=== PATIENT | female | born 1930 | race Caucasian/White ===

== ENCOUNTER 2016-11-11 20:27 | Inpatient (IN) | payer MEDICARE ==
[~2016-11-11] VITALS: Ht 160 cm; Wt 69.9 kg
--- NOTE | 2016-11-11 19:58 | NUR ---
Admitted this 86y/o female from [facility] to [facility] Unit with Admitting diagnosis of Debility, with history of HTN, Chronic Kidney Disease Stg. II, Type II Diabetes, Myopathy, Atrial Fibrillation, ETOH abuse, bilateral cataracts, and dementia. Patient arrived in stable condition. Ambulated with assistance by Caregiver, Migel. Patient is alert and oriented x 3. Able to make needs known. Denies any pain and discomfort at this time. No SOB noted. No acute distress. On Room air. Patient oriented to staff, room, bathroom, use of devices with verbalized understanding. Routine admission care rendered. Belongings listed done. Skin is intact. Patient reminded to use call light when help is needed. Verbalizes understanding. Bed alarm is on. Dr. Lopez made aware of admission and med recon. All needs attended to promptly. Call light is within reach. Will continue to monitor patient.
[2016-11-11 20:00] VITALS: BP 152/81
[2016-11-11] MEDS ORDERED: CHOL500062 PO (20:58)
[2016-11-11] MEDS ORDERED: OMEP20TA5 PO (20:58)
[2016-11-11] MEDS ORDERED: VITA-287 PO (20:58)
[2016-11-11] MEDS ORDERED: OMEG1CAP55 PO (20:58)
[2016-11-11] MEDS ORDERED: METF500T4 PO (20:58)
[2016-11-11] MEDS ORDERED: AMLO5TAB2 PO (20:58)
[2016-11-11] MEDS ORDERED: MULT-1160 PO (20:58)
[2016-11-11] MEDS ORDERED: DEXTROSE 50% 50 ML DISP.SYRIN IV PRN (23:45)
[2016-11-12] MEDS: PANTOPRAZOLE SODIUM 40 MG TABLET.DR PO SCH (06:29)
--- NOTE | 2016-11-12 06:30 | NUR ---
Patient is awake at this time. Slept comfortably through out the night. Assisted to the bathroom intermittently through out the night. Tolerated well. No c/o pain or discomfort. No acute distress. No SOB. 7am medication administered. BS 102. No coverage needed. No s/s of hypoglycemia. All needs attended to promptly. Call light within reach. Will continue to monitor.
[2016-11-12] MEDS: BLOOD SUGAR DIAGNOSTIC 1 EACH STRIP VI SCH ×4 (06:33→21:15)
[2016-11-12] MEDS ORDERED: PANTOPRAZOLE SODIUM 40 MG TABLET.DR PO ONE (06:34)
[2016-11-12 08:00] LABS: BASOPHILS % (AUTO) 0.5 % (0.0-2.0); EOSINOPHILS # (AUTO) 0.2 K/uL (0.0-0.7); EOSINOPHILS % (AUTO) 3.4 % (0.0-7.0); HEMATOCRIT 36.4 % (37-47); HEMOGLOBIN 12.2 G/DL (12.0-16.0); LYMPHOCYTES # (AUTO) 2.1 K/UL (0.8-4.8); LYMPHOCYTES % (AUTO) 42.5 % (20.5-51.5); MEAN CORPUSCULAR HEMOGLOBIN 29.4 UUG (27.0-31.0); MEAN CORPUSCULAR HGB CONC 34 g/dL (32.0-37.0); MEAN CORPUSCULAR VOLUME 87.7 FL (81.0-99.0); MONOCYTES # (AUTO) 0.4 K/UL (0.1-1.30); MONOCYTES % (AUTO) 8.7 % (0.0-11.0); NEUTROPHILS # (AUTO) 2.2 K/UL (1.8-8.9); NEUTROPHILS % (AUTO) 44.9 % (38.5-71.5); PLATELET COUNT (AUTO) 236 K/UL (150-450); RED BLOOD CELL COUNT(AUTO) 4.15 MIL/UL (4.2-5.4); WHITE BLOOD COUNT (AUTO) 4.9 K/UL (4.0-11.2)
[2016-11-12] MEDS: MULTIVIT, IRON, MIN NO. 8, FA TABLET PO SCH (08:07)
[2016-11-12] MEDS: METFORMIN HCL 500 MG TABLET PO SCH ×2 (08:07→17:55)
[2016-11-12] MEDS: AMLODIPINE 5 MG TABLET PO SCH (08:09)
[2016-11-12 08:31] LABS: ALANINE AMINOTRANSFERASE 18 U/L (14-59); ALKALINE PHOSPHATASE 84 U/L (50-136); ASPARTATE AMINOTRANSFERASE 17 U/L (15-37); BILIRUBIN,TOTAL 0.5 mg/dL (0.2-1.0); CARBON DIOXIDE 26 mmol/L (21-32); CHLORIDE 107 mmol/L (98-107); CHOLESTEROL 183 mg/dL (<200); CREATININE 0.9 mg/dL (0.6-1.3); GLUCOSE 99 mg/dL (74-106); HDL CHOLESTEROL 49 mg/dL (40-60); MAGNESIUM 1.6 mg/dL (1.8-2.4); PHOSPHOROUS 3.2 mg/dL (2.5-4.9); POTASSIUM 3.7 mmol/L (3.5-5.1); TOTAL PROTEIN, SERUM 7.1 g/dL (6.4-8.2); TRIGLYCERIDES 63 MG/DL (30-150); UREA NITROGEN, BLOOD 17 mg/dL (7-18)
[2016-11-12 08:56] VITALS: BP 143/71
[2016-11-12] MEDS ORDERED: Medication Not On Formulary EA (Multivits-Min/Iron/FA/Lutein (Centrum Silver Women Table PO SCH (09:00)
[2016-11-12] MEDS ORDERED: Medication Not On Formulary EA (Cholecalciferol (Vitamin D3) (Vitamin D3) 5,000 UNIT) PO SCH (09:00)
[2016-11-12] MEDS: VITAMIN B COMPLEX 1 TABLET PO SCH (09:45)
[2016-11-12] MEDS: CHOLECALCIFEROL 1,000 UNIT TABLET PO SCH (09:45)
[2016-11-12] MEDS ORDERED: MAGNESIUM OXIDE 400 MG TABLET PO ONE (14:00)
[2016-11-12] MEDS: INSULIN REGULAR, HUMAN 300 UNIT/3 ML VIAL SQ PRN (21:18)
[2016-11-12 21:41] VITALS: BP 133/64
[2016-11-13] MEDS: PANTOPRAZOLE SODIUM 40 MG TABLET.DR PO SCH (06:48)
[2016-11-13] MEDS: BLOOD SUGAR DIAGNOSTIC 1 EACH STRIP VI SCH ×4 (06:50→20:54)
--- NOTE | 2016-11-13 06:51 | NUR ---
Patient awake at this time. Slept comfortably throughout the night. All needs attended to promptly. Call light within reach. Will continue to monitor.
[2016-11-13 08:11] VITALS: BP 141/74
[2016-11-13] MEDS: AMLODIPINE 5 MG TABLET PO SCH (09:18)
[2016-11-13] MEDS: METFORMIN HCL 500 MG TABLET PO SCH ×2 (09:19→17:13)
[2016-11-13] MEDS: MULTIVIT, IRON, MIN NO. 8, FA TABLET PO SCH (09:19)
[2016-11-13] MEDS: VITAMIN B COMPLEX 1 TABLET PO SCH (09:19)
[2016-11-13] MEDS: CHOLECALCIFEROL 1,000 UNIT TABLET PO SCH (16:12)
[2016-11-13] MEDS: INSULIN REGULAR, HUMAN 300 UNIT/3 ML VIAL SQ PRN (17:14)
--- NOTE | 2016-11-13 19:18 | NUR ---
RECEIVED PATIENT IN BED, ALERT ORIENTED BUT FORGETFUL, NEEDS REORIENTATION, NO COMPLAINS OF PAIN AT THIS TIME, CONTINENT OF BOWEL AND BLADDER, ASSISTED WITH TOILETING, CALL LIGHT WITHIN REACH.
--- NOTE | 2016-11-13 19:57 | NUR ---
pt showed signs of confusion. pt seen walking out of the room. stayed with the patient and explained reason for stay and discharge. pt understood but very forgetfull. no complications noted. pt take meds as prescribed. talked to md about situation. will endorse new developments to warehouse shift supervisor nurse/
[2016-11-13 20:18] VITALS: BP 156/71
[2016-11-14] MEDS: PANTOPRAZOLE SODIUM 40 MG TABLET.DR PO SCH (06:26)
[2016-11-14] MEDS: BLOOD SUGAR DIAGNOSTIC 1 EACH STRIP VI SCH ×4 (06:30→20:49)
--- NOTE | 2016-11-14 07:40 | NUR ---
PATIENT SLEPT MOST OF THE NIGHT, NO COMPLAIN OF PAIN NOR DISCOMFORT, AMBULATE WITH ASSIST, CONTINENT ASSIST WITH TOILETING, CONT TO MONITOR.
--- NOTE | 2016-11-14 08:00 | NUR ---
RECEIVED PATIENT AWAKE, ALERT X2. WITH PERIODS OF CONFUSION. PATIENT IS COOPERATIVE AND MAKE NEEDS KNOWN. NOT IN ANY FORM OF DISTRESS. NO COMPLAINTS OF PAIN AT THIS TIME. CALL LIGHT WITHIN REACH. ENCOURAGED TP PRESS RED BUTTON FOR NEEDS.
[2016-11-14 08:37] VITALS: BP 129/70
--- NOTE | 2016-11-14 09:10 | NUR ---
UP WITH OCCUPATIONAL THERAPY. NO COMPLAINTS OF DISCOMFORT. TOLERATED THERAPY WELL.
[2016-11-14] MEDS: MULTIVIT, IRON, MIN NO. 8, FA TABLET PO SCH (09:34)
[2016-11-14] MEDS: VITAMIN B COMPLEX 1 TABLET PO SCH (09:34)
[2016-11-14] MEDS: METFORMIN HCL 500 MG TABLET PO SCH ×2 (09:34→17:11)
[2016-11-14] MEDS: AMLODIPINE 5 MG TABLET PO SCH (09:35)
[2016-11-14] MEDS: CHOLECALCIFEROL 1,000 UNIT TABLET PO SCH (09:37)
[2016-11-14] MEDS: INSULIN REGULAR, HUMAN 300 UNIT/3 ML VIAL SQ PRN (17:13)
--- NOTE | 2016-11-14 18:08 | NUR ---
Patient had one bladder accident. Per-care done. Encouraged to call for needs and if she needs to use the bathroom. Patient forgetful but alert
--- NOTE | 2016-11-14 19:30 | NUR ---
Received patient laying in bed. Alert and verbally responsive. Able to make needs known. Denies any pain and discomfort. No acute distress noted. All needs attended to promptly. Call light within reach. Will continue to monitor.
[2016-11-14 20:07] VITALS: BP 131/75
[2016-11-14] MEDS: SIMVASTATIN 10 MG TABLET PO SCH (20:49)
[2016-11-15] MEDS: PANTOPRAZOLE SODIUM 40 MG TABLET.DR PO SCH (06:33)
[2016-11-15] MEDS: BLOOD SUGAR DIAGNOSTIC 1 EACH STRIP VI SCH ×4 (06:35→20:25)
--- NOTE | 2016-11-15 07:01 | NUR ---
Patient awake. Slept comfortably throughout the night. 7am meds given. BS is 111. No coverage needed. No c/o pain and discomfort. No acute distress. All needs attended to promptly. Call light within reach. Will continue to monitor.
--- NOTE | 2016-11-15 07:44 | NUR ---
Received patient up in bed, ready for occupational therapy. Alert and oriented x2. No other complaints of discomfort.
[2016-11-15] MEDS: AMLODIPINE 5 MG TABLET PO SCH (09:00)
[2016-11-15] MEDS: MULTIVIT, IRON, MIN NO. 8, FA TABLET PO SCH (09:01)
[2016-11-15] MEDS: CHOLECALCIFEROL 1,000 UNIT TABLET PO SCH (09:01)
[2016-11-15] MEDS: METFORMIN HCL 500 MG TABLET PO SCH ×2 (09:01→17:28)
[2016-11-15] MEDS: VITAMIN B COMPLEX 1 TABLET PO SCH (09:02)
[2016-11-15 09:11] VITALS: BP 102/49
[2016-11-15] MEDS ORDERED: Z GUARD REMEDY PASTE 57 GM TUBE TOP PRN (13:00)
--- NOTE | 2016-11-15 13:00 | NUR ---
PATIENT SHOWERED NEEDING MAXIMUM ASSISTANCE, NO OTHER COMPLAINTS AT THIS TIME. CALL LIGHT WITHIN REACH. ENCOURAGED TO CALL FOR NEEDS
--- NOTE | 2016-11-15 18:13 | NUR ---
Patient resting well. No complaints of pain/ discomfort. Call light within reach. Encouraged patient to call for needs.
--- NOTE | 2016-11-15 19:30 | NUR ---
Patient received in bed. Alert and oriented. Able to make needs known. Denies any pain and discomfort. No acute distress. No SOB. Kept clean and dry. All needs attended to promptly. Call light within reach. Will continue to monitor.
[2016-11-15 20:22] VITALS: BP 131/68
[2016-11-15] MEDS: SIMVASTATIN 10 MG TABLET PO SCH (20:23)
[2016-11-16] MEDS: PANTOPRAZOLE SODIUM 40 MG TABLET.DR PO SCH (06:30)
[2016-11-16] MEDS: BLOOD SUGAR DIAGNOSTIC 1 EACH STRIP VI SCH ×4 (06:32→20:58)
--- NOTE | 2016-11-16 06:33 | NUR ---
Patient is awake. Slept comfortably throughout the night. 7am meds given. Tolerated well. BS is 101. No coverage needed. All needs attended to promptly. Call light within reach. Will continue to monitor.
[2016-11-16 07:30] VITALS: BP 121/70
[2016-11-16] MEDS: AMLODIPINE 5 MG TABLET PO SCH (08:51)
[2016-11-16] MEDS: METFORMIN HCL 500 MG TABLET PO SCH ×2 (08:51→17:08)
[2016-11-16] MEDS: MULTIVIT, IRON, MIN NO. 8, FA TABLET PO SCH (08:51)
[2016-11-16] MEDS: VITAMIN B COMPLEX 1 TABLET PO SCH (08:52)
[2016-11-16] MEDS: CHOLECALCIFEROL 1,000 UNIT TABLET PO SCH (12:31)
--- NOTE | 2016-11-16 19:00 | NUR ---
RECEIVED PATIENT IN BED, NO SOB NO CHEST PAIN, PATIENT AMBULATE TO THE HALLWAYS WITHOUT DIFFICULTY, ASSISTED WITH TOILETING. CALL LIGHTS WITHIN REACH.
--- NOTE | 2016-11-16 19:39 | NUR ---
pt showed some signs of confusion. bed alarm on. pt took meds prescribed . tolerated therapy. will continue to endorse new developments to [facility] shift nurse.
[2016-11-16 20:00] VITALS: BP 130/74
[2016-11-16] MEDS: SIMVASTATIN 10 MG TABLET PO SCH (20:50)
--- NOTE | 2016-11-17 05:45 | NUR ---
PATIENT SLEPT MOST OF THE NIGHT, NO SOB NO CHEST PAIN, NO COMPLAIN OF PAIN, NO S/S OF HYPO/HYPERGYLCEMIA NOTED, ASSISTED WITH TOILETING, CONTINENT OF BOWEL AND BLADDER, CALL LIGHT WITHIN REACH.
[2016-11-17] MEDS: PANTOPRAZOLE SODIUM 40 MG TABLET.DR PO SCH (06:15)
[2016-11-17 07:08] VITALS: BP 146/58
--- NOTE | 2016-11-17 08:10 | NUR ---
RECEIVED PATIENT AWAKE RESTING IN BED. ALERT BUT FORGETFUL. CALL LIGHT WITHIN REACH, ENCOURAGED TO CALL FOR NEEDS AND IF SHE NEEDS TO USE BATHROOM. NO COMPLAINTS OF PAIN AT THIS TIME. NOT IN ANY FORM OF DISTRESS.
[2016-11-17] MEDS: VITAMIN B COMPLEX 1 TABLET PO SCH (09:00)
[2016-11-17] MEDS: METFORMIN HCL 500 MG TABLET PO SCH ×2 (09:00→17:07)
[2016-11-17] MEDS: CHOLECALCIFEROL 1,000 UNIT TABLET PO SCH (09:01)
[2016-11-17] MEDS: MULTIVIT, IRON, MIN NO. 8, FA TABLET PO SCH (09:01)
[2016-11-17] MEDS: AMLODIPINE 5 MG TABLET PO SCH (09:01)
--- NOTE | 2016-11-17 10:25 | NUR ---
RECEIVED PATIENT IN BED NO COMPLAIN OF PAIN, CONTINENT OF BOWEL AND BLADDER, STAND BY ASSIST WITH TOILETING, CONT TO MONITOR.
--- NOTE | 2016-11-17 12:54 | NUR ---
Cardroom Plastic Card Grader: SW met with patient at bedside to asses needs and provide support. Pt is an 86-year-old female admitted to ARU for functional decline, impaired ambulation and cognitive impairment. Pt has some cognitive impairment and appeared confused/disoriented during interview. Pt reported she lives at home alone, however per chart she lives at a [facility]. When asked what her goal is, patient reported "to go home." Pt did report to have three sons who are involved in her care. She stated she has not had any issues participating in physical therapy. SW attempted to contact pt's son, David but no answer at this time. Interview was limited due to pt being partially confused at end of interview. SW engaged in active listening and provide emotional support. SW will provide support to family and pt as needed. SW will provide linkage to case management. SW will provide supportive counseling.
[2016-11-17 20:00] VITALS: BP 154/71
[2016-11-17] MEDS: SIMVASTATIN 10 MG TABLET PO SCH (21:19)
--- NOTE | 2016-11-18 05:41 | NUR ---
PATIENT SLEPT MOST OF THE NIGHT, NO SOB NO CHEST PAIN NOTED, CONTINENT OF BOWEL AND BLADDER, STAND BY ASSIST WITH TOILETING, CONT TO MONITOR.
[2016-11-18] MEDS: PANTOPRAZOLE SODIUM 40 MG TABLET.DR PO SCH (06:23)
--- NOTE | 2016-11-18 07:50 | NUR ---
RECEIVED PATIENT AWAKE, RESTING IN BED. ALERT AND ORIENTED X3. NOT IN ANY FORM OF DISTRESS. CALL LIGHT WITHIN REACH. ENCOURAGED TO CALL FOR NEEDS.
[2016-11-18 08:07] VITALS: BP 144/63
[2016-11-18] MEDS: VITAMIN B COMPLEX 1 TABLET PO SCH (08:43)
[2016-11-18] MEDS: METFORMIN HCL 500 MG TABLET PO SCH ×2 (08:43→18:10)
[2016-11-18] MEDS: CHOLECALCIFEROL 1,000 UNIT TABLET PO SCH (08:44)
[2016-11-18] MEDS: MULTIVIT, IRON, MIN NO. 8, FA TABLET PO SCH (08:44)
[2016-11-18] MEDS: AMLODIPINE 5 MG TABLET PO SCH (08:44)
--- NOTE | 2016-11-18 14:27 | NUR ---
REHAB TEAM CONFERENCE 11/18/16
--- NOTE | 2016-11-18 18:58 | NUR ---
Tolerated therapy well. No complaints of pain. Attended to needs promptly. Call light within reach
[2016-11-18] MEDS: SIMVASTATIN 10 MG TABLET PO SCH (20:37)
[2016-11-18 20:51] VITALS: BP 136/70
[2016-11-19] MEDS: PANTOPRAZOLE SODIUM 40 MG TABLET.DR PO SCH (06:27)
--- NOTE | 2016-11-19 06:30 | NUR ---
pt doing well overnight ,bed alarm at all times,pt doesn't call when out of bed. vss,afebrile.no events overnight,kept attended.
[2016-11-19 07:43] LABS: BASOPHILS % (AUTO) 0.6 % (0.0-2.0); EOSINOPHILS # (AUTO) 0.1 K/uL (0.0-0.7); EOSINOPHILS % (AUTO) 3.1 % (0.0-7.0); HEMOGLOBIN 12.2 G/DL (12.0-16.0); LYMPHOCYTES # (AUTO) 1.9 K/UL (0.8-4.8); LYMPHOCYTES % (AUTO) 42.5 % (20.5-51.5); MEAN CORPUSCULAR HEMOGLOBIN 29.3 UUG (27.0-31.0); MEAN CORPUSCULAR HGB CONC 33 g/dL (32.0-37.0); MEAN CORPUSCULAR VOLUME 88.7 FL (81.0-99.0); MONOCYTES # (AUTO) 0.3 K/UL (0.1-1.30); MONOCYTES % (AUTO) 7.6 % (0.0-11.0); NEUTROPHILS # (AUTO) 2.2 K/UL (1.8-8.9); NEUTROPHILS % (AUTO) 46.2 % (38.5-71.5); PLATELET COUNT (AUTO) 235 K/UL (150-450); RED BLOOD CELL COUNT(AUTO) 4.18 MIL/UL (4.2-5.4); WHITE BLOOD COUNT (AUTO) 4.5 K/UL (4.0-11.2)
[2016-11-19 08:36] LABS: ALANINE AMINOTRANSFERASE 18 U/L (14-59); ALKALINE PHOSPHATASE 77 U/L (50-136); ASPARTATE AMINOTRANSFERASE 18 U/L (15-37); BILIRUBIN,TOTAL 0.4 mg/dL (0.2-1.0); CARBON DIOXIDE 27 mmol/L (21-32); CHLORIDE 107 mmol/L (98-107); GLUCOSE 105 mg/dL (74-106); MAGNESIUM 1.8 mg/dL (1.8-2.4); PHOSPHOROUS 3.4 mg/dL (2.5-4.9); POTASSIUM 4.3 mmol/L (3.5-5.1); UREA NITROGEN, BLOOD 26 mg/dL (7-18)
[2016-11-19 09:09] VITALS: BP 128/65
[2016-11-19] MEDS: VITAMIN B COMPLEX 1 TABLET PO SCH (09:29)
[2016-11-19] MEDS: MULTIVIT, IRON, MIN NO. 8, FA TABLET PO SCH (09:29)
[2016-11-19] MEDS: METFORMIN HCL 500 MG TABLET PO SCH ×2 (09:30→18:37)
[2016-11-19] MEDS: CHOLECALCIFEROL 1,000 UNIT TABLET PO SCH (09:32)
[2016-11-19] MEDS: AMLODIPINE 5 MG TABLET PO SCH (09:33)
--- NOTE | 2016-11-19 16:58 | NUR ---
Pt. participating well with OT and PT. OOB to br with sba. Good appetite. No acute distress.
--- NOTE | 2016-11-19 19:29 | NUR ---
PT IS LAYING IN BED COMFORTABLY. NO S/S OF RESPIRATORY DISTRESS NOTED ALL SAFETY NEEDS ARE MET. PT REPORT RECEIVED FROM ETHAN VANN AT [id number]
--- NOTE | 2016-11-19 19:30 | NUR ---
Patient received laying in bed. Alert and verbally responsive. Able to make needs known. Denies any pain and discomfort. No acute distress. No SOB. On room air. Kept clean and dry. All needs attended to promptly. Call light within reach. Will continue to monitor.
[2016-11-19] MEDS: SIMVASTATIN 10 MG TABLET PO SCH (20:39)
[2016-11-19 21:51] VITALS: BP 141/61
[2016-11-20] MEDS: PANTOPRAZOLE SODIUM 40 MG TABLET.DR PO SCH (06:05)
--- NOTE | 2016-11-20 06:13 | NUR ---
Patient awake at this time. Slept comfortably throughout the night. 7am meds given. Assisted to bathroom. Tolerated well. All needs attended to promptly. Call light within reach. Will continue to monitor.
--- NOTE | 2016-11-20 07:05 | NUR ---
Received pt in bed, a/o x2, forgetful, no respiratory distress noted. Call light and personal belongings within easy reach. Bed low locked position. Side rails up x2. Plan of care discussed.
[2016-11-20 08:46] VITALS: BP 139/69
[2016-11-20] MEDS: VITAMIN B COMPLEX 1 TABLET PO SCH (09:10)
[2016-11-20] MEDS: MULTIVIT, IRON, MIN NO. 8, FA TABLET PO SCH (09:10)
[2016-11-20] MEDS: METFORMIN HCL 500 MG TABLET PO SCH ×2 (09:11→17:15)
[2016-11-20] MEDS: AMLODIPINE 5 MG TABLET PO SCH (09:11)
[2016-11-20] MEDS: CHOLECALCIFEROL 1,000 UNIT TABLET PO SCH (15:15)
--- NOTE | 2016-11-20 15:17 | NUR ---
Pt resting in bed, no distress noted. Vit D given at this time due to not available by pharmacy earlier.
--- NOTE | 2016-11-20 17:15 | NUR ---
Pt sitting at edge of bed, Metformin given as order.
--- NOTE | 2016-11-20 19:30 | NUR ---
RECEIVED PATIENT AWAKE, ALERT AND ORIENTED TO NAME, PLACE, AND AT TIMES, THE TIME. REORIENTED NEEDED.INSTRUCTED TO CALL WHEN NEEDING TO GO TO THE TOILET. PATIENT VERBALIZES GOOD UNDERSTANDING. DOES HAVE SOME FORGETFULNESS SO BED ALARM TURNED ON AAT. CALL LIGHT WITHIN REACH AAT.NO C/O PAIN OR DISCOMFORT. NO RESPIRATORY DISTRESS NOTED ON ROOM AIR. APPEARS COMFORTABLE AT THIS TIME, IN NO APPARENT DISTRESS.
[2016-11-20] MEDS: SIMVASTATIN 10 MG TABLET PO SCH (20:48)
[2016-11-20 21:23] VITALS: BP 138/67
--- NOTE | 2016-11-21 06:00 | NUR ---
SLEPT WELL LAST NIGHT. NO C/O DISCOMFORT OR OTHER C/O THIS MORNING. PLAN IS TO BE DISCHARGED TODAY. PRESENTLY, IS COMFORTABLE AND APPEARS IN NAD. CALL LIGHT WITHIN REAACH AAT
[2016-11-21] MEDS: PANTOPRAZOLE SODIUM 40 MG TABLET.DR PO SCH (06:30)
--- NOTE | 2016-11-21 07:09 | NUR ---
Patient received from director of technology, resting comfortably in bed, no signs of acute distress noted. VS WNL, no complaints of pain at this time. No other verbalized needs at this time, family observed at bedside, no needs noted. Safety and fall precautions maintained, call light within reach.
[2016-11-21 08:03] VITALS: BP 140/70
[2016-11-21] MEDS: MULTIVIT, IRON, MIN NO. 8, FA TABLET PO SCH (08:30)
[2016-11-21] MEDS: METFORMIN HCL 500 MG TABLET PO SCH (08:30)
[2016-11-21 08:31] VITALS: BP 140/70
[2016-11-21] MEDS: AMLODIPINE 5 MG TABLET PO SCH (08:31)
[2016-11-21] MEDS: VITAMIN B COMPLEX 1 TABLET PO SCH (08:31)
[2016-11-21] MEDS: CHOLECALCIFEROL 1,000 UNIT TABLET PO SCH (11:03)
--- NOTE | 2016-11-21 14:00 | NUR ---
Orders received for discharge from [facility]. Patient given discharge instructions and information via [facility]. All discharge needs met, no verbalized questions. Dr. Winters notified of discharge, given medical clearance. Medication reconciliation and prescriptions received from Dr. Winters. Belongings verified with patient. Gary, patient's board and care siebel administrator, spoken with, who verified discharge for today. Patient left unit with all belongings in stable condition, VS WNL, with private driver supervisor. All safety and fall precautions maintained.
== END 2016-11-21 14:00 | disposition home health service (06) | DRG 948 ==
PROVIDERS: ADMIT Physical Medicine & Rehabilitation Pain Medicine; ATTEND Physical Medicine & Rehabilitation Pain Medicine
DX: R53.81 Other malaise (principal); D68.59 Other primary thrombophilia; R53.1 Weakness; I12.9 Hypertensive chronic kidney disease with stage 1 through stage 4 chronic kidney disease, or unspecified chronic kidney disease; N18.3 Chronic kidney disease, stage 3 (moderate); E11.22 Type 2 diabetes mellitus with diabetic chronic kidney disease; R26.81 Unsteadiness on feet; E78.5 Hyperlipidemia, unspecified; R41.89 Other symptoms and signs involving cognitive functions and awareness; E83.42 Hypomagnesemia; F03.90 Unspecified dementia, unspecified severity, without behavioral disturbance, psychotic disturbance, mood disturbance, and anxiety; I48.0 Paroxysmal atrial fibrillation; I48.2 Chronic atrial fibrillation; I51.7 Cardiomegaly; R41.0 Disorientation, unspecified; Z88.0 Allergy status to penicillin; H26.9 Unspecified cataract
CPT/HCPCS: 36415; 70030-TC; 71010; 83735; 84100; 85025; 92507; 92610; 97110; 97112; 97116; 97161; 97530; 97535; J1815